=== PATIENT | female | born 1955 | race Caucasian/White ===

== ENCOUNTER → 2024-07-05 16:00 | Outpatient (REF) | payer MEDICARE, SELFPAY | LOC: RAD 16:00 | PROVIDERS: ATTENDING PHYSICIAN Nurse Practitioner Primary Care; FAMILY PHYSICIAN Internal Medicine Geriatric Medicine | DX: M25.551 Pain in right hip (principal); M25.562 Pain in left knee | CPT/HCPCS: 73502; 73564 ==

== ENCOUNTER 2024-09-11 10:33 | Emergency (ER) | payer MEDICARE, SELFPAY ==
[2024-09-11 10:36] VITALS: BP 165/85
--- NOTE | 2024-09-11 11:05 | ED.GENMED ---
History of Present Illness
General
Chief Complaint: Fall
Time Seen by Provider: 09/11/24 10:43
History of Present Illness
History of Present Illness:
69-year-old female with history of hypertension presents to the emergency department for evaluation of right posterior rib pain as well as right hip and pelvic pain. Falls occurred while attempting to do yard work she did have a positive head
strike with a fall yesterday but denies any headache or vision changes at this time. Does not take any anticoagulants but does take 81 mg of aspirin
Past History
Past History
ED Past Medical History: HTN, NIDDM (Diet-controlled) and Other (Chronic diarrhea)
ED Past Surgical History: Gynecological (Hysterectomy) and Other (Cataracts)
Social History
Tobacco: Smoker
Alcohol: None
Drug: None
Living: with family
Employment: Employed
Review of Systems
Review of Systems
Allergies reviewed?: Yes
All Other Systems: ROS reviewed and negative except as documented in HPI and ROS
Phy Exam
Physical Exam
Physical Exam:
GEN: Well appearing, NAD, WDWN
Eyes: PERRLA, EOMs intact, no scleral icterus
HENT: NCAT, oral mucosa moist, no JVD, no cervical adenopathy.
Lungs: CTAB, no wheezes, rales, rhonchi, normal chest wall excursion
Cardiac: RRR, no M/R/G, no peripheral edema. Radial pulses 2+ bilat
Abdomen: S, NT, ND, NABS, no masses or hepatosplenomegaly
Neuro: AO x 3
MSK: No gross deformity. Large ecchymotic area to the right lower back paraspinous muscles and SI joint area, additional ecchymosis to the right lateral hip. No shortening or external rotation. Focal tenderness to the right hip greater trochanter
Skin: No rashes, petechiae. Normal color, no pallor or jaundice.
Psych: Calm, cooperative, proper hygiene
Course
Orders/Labs/Results
Orders:
Orders
09/11/24 10:56
Ketorolac [Toradol] 30 mg IM NOW STA
CR Hip - RT w/wo Pel 2-3 Vw* Urgent
Comment:
Reason For Exam: fall R hip pain
Include a pelvis x-ray?: Yes
CR Ribs-right 3 Vw W/pa Chest* Urgent
Comment:
Reason For Exam: fall R posterior lower rib pain
Vital Signs
Initial and Last Documented VS:
Initial Vital Signs
Temp Pulse Resp BP Pulse Ox
98.2 F 71 18 165/85 98
09/11/24 10:36 09/11/24 10:36 09/11/24 10:36 09/11/24 10:36 09/11/24 10:36
Last Documented Vital Signs
Temp Pulse Resp BP Pulse Ox
98.2 F 68 18 151/84 98
09/11/24 10:36 09/11/24 13:00 09/11/24 13:00 09/11/24 13:00 09/11/24 13:00
MDM/Problems Addressed
MDM/Problems Addressed:
Imaging of the pelvis and the right chest wall/ribs shows no evidence for acute osseous abnormalities. Discussed supportive care with the patient
*Critical Care Note
Total Time (30-74mins, 75-104mins- exclusive of procedures): Not Applicable
ED Attending Note
-
Portions of this chart may have been created with voice recognition software.� Occasional wrong word or��sound alike� substitutions may have occurred due to the inherent limitations of voice recognition software.
Discharge Plan
Departure
Patient Disposition: Home (Routine Discharge)
Date of Disposition: 09/11/24
Time of Disposition: 12:51
Patient with high blood pressure during this ER visit?: No
Discharge Problem:
Contusion of right hip, Chest wall contusion
Instructions: Contusion (DC)
Prescriptions:
New
oxycodone-acetaminophen [Percocet] 5-325 mg tablet
1 tab PO Q6HPRN PRN (Reason: pain) Qty: 10 0RF
No Action
bupropion HCl 150 MG tablet sustained-release 12 hr
150 mg PO BID
lisinopril 20 MG tablet
20 mg PO DAILY
aspirin 81 MG tablet,delayed release (DR/EC)
81 mg PO DAILY
amlodipine 10 MG tablet
10 mg PO DAILY
escitalopram oxalate 20 MG tablet
20 mg PO DAILY
omega 8-jlw-avo-fish oil [Fish Oil] 1 EACH capsule
1 ea PO DAILY
[id number]-yufg-FA-vit K-lut [Multivitamin Women 50 Plus] 1 EACH tablet
1 ea PO DAILY
Referrals:
Yayo Curry MD [Family Provider] -
Stand Alone Forms: Return to Work
Interventions
Interventions:
*Risk Screen - Suicide Last Done: 09/11/24 10:36
*General Assessment Last Done: 09/11/24 10:36
*Neglect/Abuse Screening Last Done: 09/11/24 10:36
ED- Fall Risk Assessment Last Done: 09/11/24 13:05
*ED COVID-19 Vaccine History Last Done: 09/11/24 11:12
*Nursing Disposition Last Done: 09/11/24 13:05
ED-Musculoskeletal Assessment Last Done: 09/11/24 11:12
ED- Neurological Assessment Last Done: 09/11/24 11:12
ED-Skin Assessment Last Done: 09/11/24 11:12
Discharge Date and Time
Discharge Date/Time: 09/11/24 13:05
Print Language: GREEK
[2024-09-11] MEDS: TORADOL 30 MG IM (11:09)
[2024-09-11 13:00] VITALS: BP 151/84
== END 2024-09-11 13:05 | disposition home or self-care (01) ==
LOC: EMR 10:33
PROVIDERS: EMERGENCY PHYSICIAN Student in an Organized Health Care Education/Training Program; FAMILY PHYSICIAN Internal Medicine Geriatric Medicine
DX: S20.229A Contusion of unspecified back wall of thorax, initial encounter (principal); S70.01XA Contusion of right hip, initial encounter; S30.0XXA Contusion of lower back and pelvis, initial encounter; W19.XXXA Unspecified fall, initial encounter; I10 Essential (primary) hypertension; E11.9 Type 2 diabetes mellitus without complications; Z90.710 Acquired absence of both cervix and uterus; F17.200 Nicotine dependence, unspecified, uncomplicated
CPT/HCPCS: 96372; 99284; 71101; 73502

== ENCOUNTER → 2024-12-06 14:42 | Outpatient (REF) | payer MEDICARE, SELFPAY | LOC: RAD 14:42 | PROVIDERS: ATTENDING PHYSICIAN Nurse Practitioner Primary Care | DX: Z13.820 Encounter for screening for osteoporosis (principal); Z78.0 Asymptomatic menopausal state | CPT/HCPCS: 77080 ==

== ENCOUNTER → 2024-12-12 10:45 | Outpatient (REF) | payer MEDICARE, SELFPAY | LOC: MRI 3T 10:45 | PROVIDERS: ATTENDING PHYSICIAN Nurse Practitioner Primary Care | DX: G43.009 Migraine without aura, not intractable, without status migrainosus (principal); R29.6 Repeated falls | CPT/HCPCS: 70553; A9575 ==

== ENCOUNTER → 2024-12-15 07:12 | Outpatient (REF) | payer MEDICARE, SELFPAY | LOC: PAVMRI 07:12 | PROVIDERS: ATTENDING PHYSICIAN Nurse Practitioner Primary Care | DX: M25.551 Pain in right hip (principal) | CPT/HCPCS: 73721 ==

== ENCOUNTER → 2025-02-19 16:41 | Outpatient (REF) | payer MEDICARE, SELFPAY | LOC: RAD 16:41 | PROVIDERS: ATTENDING PHYSICIAN Nurse Practitioner Primary Care | DX: M54.50 Low back pain, unspecified (principal) | CPT/HCPCS: 72110 ==

== ENCOUNTER → 2025-03-26 17:48 | Outpatient (REF) | payer MEDICARE, SELFPAY | LOC: RCS 17:48 | PROVIDERS: ATTENDING PHYSICIAN Nurse Practitioner Primary Care | DX: E11.9 Type 2 diabetes mellitus without complications (principal); I10 Essential (primary) hypertension | CPT/HCPCS: 93306 ==

== ENCOUNTER → 2025-06-09 07:21 | Outpatient (REF) | payer MEDICARE, SELFPAY | LOC: MRI 3T 07:21 | PROVIDERS: ATTENDING PHYSICIAN Nurse Practitioner Primary Care; PRIMARYCARE PHYSICIAN Internal Medicine Geriatric Medicine | DX: M54.50 Low back pain, unspecified (principal); M51.360 Other intervertebral disc degeneration, lumbar region with discogenic back pain only | CPT/HCPCS: 72148 ==